=== PATIENT | male | born 1970 | race Caucasian/White ===

== ENCOUNTER 2021-04-14 08:00 | Outpatient (CLI) | payer OTHER ==
[2021-04-14] MEDS ORDERED: LIDOCAINE 1%, 20ML ONE (09:30)
[2021-04-14] MEDS ORDERED: TRIAMCINOLONE ACETONIDE 40 MG/ML, 1ML ONE ×2 (09:31→09:55)
[2021-04-14] MEDS ORDERED: ROPivacaine/PF 0.2%, 10 ML ONE (09:31)
[2021-04-14] MEDS ORDERED: GADOTERATE 7.5 MMOL/15 ML VIAL ONE (09:55)
[2021-04-14] MEDS ORDERED: OMNIPAQUE 300 MG/ML, 10ML VIAL ONE (09:55)
== END 2021-04-14 23:59 | disposition home or self-care (01) ==
LOC: RAD 08:00
PROVIDERS: ATTEND Physician Assistant
DX: M25.852 Other specified joint disorders, left hip (principal); M94.252 Chondromalacia, left hip
CPT/HCPCS: 27093; 73525; 73722; A9575; J2795; J3301; J3490; Q9967